=== PATIENT | male | born 1950 | race Caucasian/White ===

== ENCOUNTER 2022-04-18 19:36 | Emergency (ER) | payer OTHER, SELFPAY ==
[2022-04-18] VITALS (11 sets, daily range): BP systolic 147–191; BP diastolic 84–124; PULSE 69–82; RESP 12–22; TEMP 36.6; O2SAT 93–96; BMI 23.3
--- NOTE | 2022-04-18 20:05 | DI.RAD.S_ITS ---
PROCEDURE: XR CHEST 1V INDICATIONS: chest pain TECHNIQUE: One view of the chest was acquired. COMPARISON: None. FINDINGS: Surgical changes and devices: Fixation hardware in lower cervical spine and upper thoracic spine is seen. Lungs and pleura: Likely chronic scarring/atelectasis in bilateral upper lung heller. Superimposed upper lobe infiltrates cannot be entirely excluded. No pleural effusions or pneumothorax. Mediastinum: Mediastinal contours appear normal. Heart size is normal. Bones and chest wall: No suspicious bony lesions. Overlying soft tissues appear unremarkable. IMPRESSION: Suggestion of chronic scarring/atelectasis in bilateral upper lung heller. Superimposed small upper lobe infiltrates cannot be excluded. No pneumothorax. No pleural effusion. Dictated by: Charlie Erwin M.D. on 04/18/2022 at 21:02 Approved by: Charlie Erwin M.D. on 04/18/2022 at 21:05
[2022-04-18 20:10] LABS: Add Manual Diff / Slide Review NO; Basophils Absolute Auto 0 /uL (0-100); Basophils Percent Auto 0.3 % (0-2); Eosinophils Absolute Auto 100 /uL (0-450); Eosinophils Percent Auto 1.3 % (2-4); Hematocrit 43.9 % (41-53); Lymphocytes Absolute Auto 600 /uL (1100-4500); Lymphocytes Percent Auto 6.1 % (25-40); Mean Corpuscular HGB Conc 34.2 % (30-36); Mean Corpuscular Hemoglobin 31.4 PG (26-34); Mean Corpuscular Volume 91.8 fL (80-100); Monocytes Absolute Auto 600 /uL (0-900); Neutrophils Absolute Auto 8500 /uL (1500-7000); Neutrophils Percent Auto 86.3 % (50-75); Platelet Count 411 X10^3/uL (150-400); Red Blood Cell Count 4.79 X10^6/uL (4.5-5.9); Red Cell Distribution Width 14.8 % (11.6-14.8); White Blood Cell Count 9.9 X10^3/uL (4.5-11.0)
[2022-04-18 20:17] LABS: COVID19 -Nasal RAPID Negative (Negative)
[2022-04-18 20:21] LABS: INR 1.1 (0.9-1.3); Prothrombin Time 12.8 SECONDS (10.1-12.7)
[2022-04-18 20:23] LABS: PTT Partial Thromboplastin Tim 31 SECONDS (26-36)
--- NOTE | 2022-04-18 20:23 | ED_ITS ---
HPI - Nausea/Vomiting/Diarrhea General Chief complaint: Nausea/Vomiting/Diarrhea Stated complaint: Chest pain, n/v tx bladder infection currently Time Seen by Provider: 04/18/22 19:41 Source: EMS Mode of arrival: EMS Limitations: other (Ability to answer questions) History of Present Illness HPI Narrative: Patient is a 71-year-old male who arrives by EMS for initially which was described as nausea and vomiting and also chest discomfort. The patient is unable to provide much of a history is he only answers ?yes? and know? to most questions. He did state that he was having chest pain but could not characteriz e that any further. It is per report that he is being treated with Macrobid for a urinary tract infection. There is no report of any fevers. He does have a [email or web address] Review of Systems Review of Systems Narrative: Severely limited secondary to the patient's ability to answer questions Cardiovascular Cardiovascular: Reports system reviewed and no additional complaints, except as documented Patient History Medical History Urinary tract infection Social History Smoking Status: Never smoker Smoking Status: Never smoker Substance Use Type: does not use Exam Initial Vital Signs Initial Vital Signs: Vital Signs Temperature 97.8 F 04/18/22 19:35 Pulse Rate 77 04/18/22 19:35 Respiratory Rate 12 04/18/22 19:35 Blood Pressure 156/95 H 04/18/22 19:35 Pulse Oximetry 93 04/18/22 19:35 Oxygen Delivery Method 04/18/22 19:35 Const General: frail appearing HENMT Head: normal to inspection and normocephalic Resp Effort & Inspection: normal respiratory effort Auscultation: clear to auscultation bilaterally Cardio Rate: regular rate Rhythm: regular rhythm Heart Sounds: murmur Back/Spine/Pelvis Other: Extremely kyphotic Skin General: no rashes or lesions noted Neuro General: patient awake Course Orders Ordered: ED Orders 04/18/22 20:05 XR chest 1V Stat 04/18/22 20:28 EKG-12 Lead Stat 04/18/22 22:41 Troponin & CK Cardiac Panel Stat Vital Signs Vital signs: Vital Signs - 8 hr 04/18/22 21:00 04/18/22 21:00 04/18/22 21:30 Pulse Rate 70 Respiratory Rate 13 Blood Pressure 163/89 H 150/84 H 04/18/22 21:30 04/18/22 22:00 04/18/22 22:01 Pulse Rate 69 75 76 Respiratory Rate 13 20 15 Blood Pressure 04/18/22 22:01 04/18/22 22:30 04/18/22 22:30 Pulse Rate 77 Respiratory Rate Blood Pressure 185/124 H 191/120 H 04/18/22 23:00 04/18/22 23:00 04/18/22 23:30 Pulse Rate 70 Respiratory Rate 13 Blood Pressure 164/92 H 164/96 H 04/18/22 23:30 04/19/22 00:00 04/19/22 00:00 Pulse Rate 72 77 Respiratory Rate 22 18 Blood Pressure 179/99 H 04/19/22 00:30 04/19/22 00:30 04/19/22 01:00 Pulse Rate 73 Respiratory Rate 24 Blood Pressure 159/93 H 176/93 H 04/19/22 01:00 04/19/22 01:30 04/19/22 01:30 Pulse Rate 70 68 Respiratory Rate 16 19 Blood Pressure 166/92 H MDM - Nausea/Vomiting/Diarrhea Lab Data Attestation: I reviewed the patient's lab results. Result diagrams: 04/18/22 19:54 04/18/22 19:54 Labs: Lab Results 04/18/22 04/18/22 04/18/22 Range/Units 19:44 19:54 19:54 WBC 9.9 (4.5-11.0) X10^3/uL RBC 4.79 (4.5-5.9) X10^6/uL Hgb 15.0 (13.5-17.5) g/dL Hct 43.9 (41-53) % MCV 91.8 (80-100) fL MCH 31.4 (26-34) PG MCHC 34.2 (30-36) % RDW 14.8 (11.6-14.8) % Plt Count 411 H (150-400) X10^3/uL Neut % (Auto) 86.3 H (50-75) % Lymph % (Auto) 6.1 L (25-40) % [place] % (Auto) 6.0 (3-14) % Eos % (Auto) 1.3 L (2-4) % Baso % (Auto) 0.3 (0-2) % Neut # (Auto) 8500 H (0554-3378) /uL Lymph # (Auto) 600 L (3053-9023) /uL [place] # (Auto) 600 (0-900) /uL Eos # (Auto) 100 (0-450) /uL Baso # (Auto) 0 (0-100) /uL PT 12.8 H (10.1-12.7) SECONDS INR 1.1 (0.9-1.3) APTT 31 (26-36) SECONDS Sodium (137-145) mmol/L Potassium (3.4-5.1) mmol/L Chloride (98-107) mmol/L Carbon Dioxide (22-32) mmol/L BUN (9-20) mg/dL Creatinine (0.66-1.25) mg/dL Estimated GFR (>60) mL/min BUN/Creatinine Ratio (6-22) Glucose (80-110) mg/dL Calcium (8.4-10.2) mg/dL Magnesium (1.6-2.3) mg/dL Total Bilirubin (0.2-1.3) mg/dL AST (17-59) IU/L ALT (<50) IU/L Alkaline Phosphatase (38-126) U/L Total Creatine Kinase (55-170) U/L CK-MB (CK-2) CK-MB (CK-2) Rel Index Troponin I (0.01-0.034) ng/mL Total Protein (6.3-8.2) g/dL Albumin (3.5-5.0) g/dL Globulin (1.7-4.1) g/dL Albumin/Globulin Ratio (1.0-2.8) Lipase (23-300) U/L SARS-CoV-2 (PCR) Negative (Negative) 04/18/22 04/18/22 Range/Units 19:54 22:41 WBC (4.5-11.0) X10^3/uL RBC (4.5-5.9) X10^6/uL Hgb (13.5-17.5) g/dL Hct (41-53) % MCV (80-100) fL MCH (26-34) PG MCHC (30-36) % RDW (11.6-14.8) % Plt Count (150-400) X10^3/uL Neut % (Auto) (50-75) % Lymph % (Auto) (25-40) % [place] % (Auto) (3-14) % Eos % (Auto) (2-4) % Baso % (Auto) (0-2) % Neut # (Auto) (0301-9282) /uL Lymph # (Auto) (0694-3995) /uL [place] # (Auto) (0-900) /uL Eos # (Auto) (0-450) /uL Baso # (Auto) (0-100) /uL PT (10.1-12.7) SECONDS INR (0.9-1.3) APTT (26-36) SECONDS Sodium 141 (137-145) mmol/L Potassium 3.7 (3.4-5.1) mmol/L Chloride 104 (98-107) mmol/L Carbon Dioxide 28 (22-32) mmol/L BUN 21 H (9-20) mg/dL Creatinine 0.83 (0.66-1.25) mg/dL Estimated GFR > 60 (>60) mL/min BUN/Creatinine Ratio 25.3 H (6-22) Glucose 114 H (80-110) mg/dL Calcium 9.6 (8.4-10.2) mg/dL Magnesium 2.3 (1.6-2.3) mg/dL Total Bilirubin 0.6 (0.2-1.3) mg/dL AST 18 (17-59) IU/L ALT 17 (<50) IU/L Alkaline Phosphatase 97 (38-126) U/L Total Creatine Kinase 45 L 50 L (55-170) U/L CK-MB (CK-2) TNP TNP CK-MB (CK-2) Rel Index TNP TNP Troponin I < 0.012 < 0.012 (0.01-0.034) ng/mL Total Protein 6.4 (6.3-8.2) g/dL Albumin 3.5 (3.5-5.0) g/dL Globulin 2.9 (1.7-4.1) g/dL Albumin/Globulin Ratio 1.2 (1.0-2.8) Lipase 594 H (23-300) U/L SARS-CoV-2 (PCR) (Negative) Imaging Data Chest x-ray: Radiologist's Impression: [address] [address] XRay Report Signed Patient: Inocencia Hensley MR#: [id number] : 1950 Acct:[id number] Age/Sex: 71 / M Date of Service: 04/18/22 Loc: ED Accession Number: [id number] ?? Procedure: XR chest 1V Ordering Provider: Mario Bailey D.O. PROCEDURE:? XR CHEST 1V ? INDICATIONS:? chest pain ? TECHNIQUE:? One view of the chest was acquired.? ? COMPARISON:? None. ? FINDINGS:? ? Surgical changes and devices:? Fixation hardware in lower cervical spine and upper thoracic spine is seen. ? Lungs and pleura:? Likely chronic scarring/atelectasis in bilateral upper lung heller.? Superimposed upper lobe infiltrates cannot be entirely excluded.? No pleural effusions or pneumothorax.? ? Mediastinum:? Mediastinal contours appear normal.? Heart size is normal.? ? Bones and chest wall:? No suspicious bony lesions.? Overlying soft tissues appear unremarkable.? ? IMPRESSION:? Suggestion of chronic scarring/atelectasis in bilateral upper lung heller.? Superimposed small upper lobe infiltrates cannot be excluded.? No pneumothorax.? No pleural effusion. ? ? Dictated by: Charlie Erwin M.D. on 04/18/2022 at 21:02 ? ? Approved by: Charlie Erwin M.D. on 04/18/2022 at 21:05? ECG Data Attestation: I personally reviewed and interpreted this ECG as follows: Interpretation: Sinus rhythm Ventricular rate 81 Normal axis Normal QRS Right bundle branch block Artifact noted at baseline MDM Narrative Medical decision making narrative: Very difficult to obtain a history and review of systems from the patient. Did express to me that he was having chest pain but could not express this further. His troponins were negative x2. His chest x-ray is unremarkable and his EKG is relatively unremarkable. He does have a PLOSt form at bedside expressed is DNR with limited interventions. We will hold on further workup for now of any chest discomfort given the negative findings thus far. Patient is also on an antibiotic for urinary tract infection. He has not vomited since being here in the ER. He is drooling quite a bit. He does not have a leukocytosis and is afebrile. No indication to change any the antibiotics that he is currently on. Will discharge patient his living facility. Discharge Plan Departure Patient Disposition: Home Clinical Impression: Chest pain Instructions: DI for Atypical Chest Pain Activity Restrictions/Additional Instructions: He can continue to take all of his medications as directed. Contact his primary doctor for follow-up.
[2022-04-18 20:29] LABS: Alanine Aminotransferase 17 IU/L (<50); Albumin 3.5 g/dL (3.5-5.0); Albumin Globulin Ratio 1.2 (1.0-2.8); Alkaline Phosphatase 97 U/L (38-126); Aspartate Aminotransferase 18 IU/L (17-59); BUN Creatinine Ratio 25.3 (6-22); Bilirubin Total 0.6 mg/dL (0.2-1.3); Blood Urea Nitrogen 21 mg/dL (9-20); Calcium 9.6 mg/dL (8.4-10.2); Carbon Dioxide 28 mmol/L (22-32); Chloride 104 mmol/L (98-107); Creatine Kinase 45 U/L (55-170); Estimated Glomerular Filt Rate > 60 mL/min (>60); Globulin 2.9 g/dL (1.7-4.1); Glucose 114 mg/dL (80-110); HEMOLYSIS < 15 (0-50); Lipase 594 U/L (23-300); Magnesium 2.3 mg/dL (1.6-2.3); Potassium 3.7 mmol/L (3.4-5.1); Sodium 141 mmol/L (137-145); Total Protein 6.4 g/dL (6.3-8.2)
[2022-04-18 20:37] LABS: Troponin I < 0.012 ng/mL (0.01-0.034)
--- NOTE | 2022-04-18 20:46 | PC.NURSE ---
EMS report in triage, pt does not expand upon this report. patient uncooperative, pulling oximeter off, misusing call light. pt verbalizes understanding of use and states he is okay, but continues uncooperative behavior.
--- NOTE | 2022-04-18 22:46 | PC.NURSE ---
pt pulled out left arm IV.
[2022-04-18 23:05] LABS: Creatine Kinase 50 U/L (55-170)
[2022-04-18 23:17] LABS: Troponin I < 0.012 ng/mL (0.01-0.034)
[2022-04-19] VITALS (15 sets, daily range): BP systolic 159–179; BP diastolic 88–106; PULSE 65–90; RESP 12–24; O2SAT 96–97
--- NOTE | 2022-04-19 01:20 | PC.NURSE ---
spoke with patient's [employer]. she states patient has been throwing up for a few days but its more like heaving. tums was given for this. ambulance was called because patient c/o of chest pain. She mentions that she feels he has been throwing up since taking his macrobid and usually throws up 1hr afterwards. she is also worried about his kidneys being infected since he has been throwing up his antibiotics. states that thickener needs to be between honey and pudding.
--- NOTE | 2022-04-19 03:06 | PC.NURSE ---
[facility] called to report critically short staffing and wont be able to arrive until 0730 this morning, previous pickup time of 0430.
--- NOTE | 2022-04-19 06:36 | PC.NURSE ---
Pt has been sleeping off and on, denies pain at this time, no N/V after arrival.
--- NOTE | 2022-04-19 16:12 | PC.NURSE ---
pt poa called requesting info on pt visit during the stay.
== END 2022-04-19 08:09 | disposition home or self-care (01) ==
PROVIDERS: Emergency Provider Emergency Medicine
DX: R07.9 Chest pain, unspecified (principal); R11.2 Nausea with vomiting, unspecified; Z20.822 Contact with and (suspected) exposure to COVID-19
CPT/HCPCS: 36415; 71045; 80053; 82550; 82553; 83690; 83735; 84484; 85025; 85610; 85730; 87635; 93005; 93010; 99283; 99284; C9803